=== PATIENT | male | born 1980 | race Hispanic/Latino ===

== ENCOUNTER 2019-04-04 18:07 | Emergency (ER) | payer BC, SELFPAY ==
[2019-04-04] MEDS ORDERED: IBUPROFEN 400 MG TAB ONE (18:31)
--- NOTE | 2019-04-04 18:57 | RAD REPORT ---
EXAM DESCRIPTION: RAD - Shoulder Left 2 View - 04/04/2019 6:32 pm CLINICAL HISTORY: PAIN COMPARISON: No comparisons FINDINGS: No fracture or dislocation is seen.
--- NOTE | 2019-04-04 20:21 | EDPHYS ---
Physician Documentation [facility] Name: Redd Michel Age: 38 yrs Sex: Male : 1980 Arrival Date: 04/04/2019 Time: 18:09 Bed 30 Private MD: ED Physician Erick Landeros HPI: 04/04 21:18 This 38 yrs old Male presents to ER via Ambulatory with complaints of Neck kb Pain, <24hrs Old, Back Pain, Shoulder Pain. 21:18 The patient or guardian complains of pain. left shoulder. Context: The problem was kb sustained at work, resulted from an unknown reason, The patient reports no decreased range of motion. The patient reports no obvious deformity. Onset: The symptoms/episode began/occurred 3 month(s) ago. Modifying factors: the symptoms are alleviated by nothing. The symptoms are aggravated by movement. Associated signs and symptoms: The patient has no apparent associated signs or symptoms. Severity of symptoms: At their worst the symptoms were moderate, in the emergency department the symptoms are unchanged. Treatment prior to arrival includes: no previous treatment. The patient has not experienced similar symptoms in the past. The patient has not recently seen a physician. Pt reports left shoulder pain for 3 months and throbbing headache left side of head since this morning. . Historical: - Allergies: 18:15 No Known Allergies; ss - Home Meds: 18:15 None [Active]; ss - PMHx: 18:15 None; ss - PSHx: 18:15 None; ss - Immunization history:: Adult Immunizations up to date. - Social history:: Smoking status: Patient/guardian denies using tobacco. - Ebola Screening: : Patient denies exposure to infectious person Patient denies travel to an Ebola-affected area in the 21 days before illness onset. ROS: 21:23 Constitutional: Negative for fever, chills, and weight loss, ENT: Negative for injury, kb pain, and discharge, Neck: Negative for injury, pain, and swelling, Cardiovascular: Negative for chest pain, palpitations, and edema, Respiratory: Negative for shortness of breath, cough, wheezing, and pleuritic chest pain, Abdomen/GI: Negative for abdominal pain, nausea, vomiting, diarrhea, and constipation, Back: Negative for injury and pain, Skin: Negative for injury, rash, and discoloration. 21:23 MS/extremity: Positive for pain, of the left shoulder. 21:23 Neuro: Positive for headache. Exam: 21:23 Constitutional: This is a well developed, well nourished patient who is awake, alert, kb and in no acute distress. Head/Face: Normocephalic, atraumatic. ENT: Nares patent. No nasal discharge, no septal abnormalities noted. Tympanic membranes are normal and external auditory canals are clear. Oropharynx with no redness, swelling, or masses, exudates, or evidence of obstruction, uvula midline. Mucous membranes moist. Neck: Trachea midline, no thyromegaly or masses palpated, and no cervical lymphadenopathy. Supple, full range of motion without nuchal rigidity, or vertebral point tenderness. No Meningismus. Chest/axilla: Normal chest wall appearance and motion. Nontender with no deformity. No lesions are appreciated. Cardiovascular: Regular rate and rhythm with a normal S1 and S2. No gallops, murmurs, or rubs. Normal PMI, no JVD. No pulse deficits. Respiratory: Lungs have equal breath sounds bilaterally, clear to auscultation and percussion. No rales, rhonchi or wheezes noted. No increased work of breathing, no retractions or nasal flaring. Abdomen/GI: Soft, non-tender, with normal bowel sounds. No distension or tympany. No guarding or rebound. No evidence of tenderness throughout. Skin: Warm, dry with normal turgor. Normal color with no rashes, no lesions, and no evidence of cellulitis. MS/ Extremity: Pulses equal, no cyanosis. Neurovascular intact. Full, normal range of motion. Neuro: Awake and alert, GCS 15, oriented to person, place, time, and situation. Cranial nerves II-XII grossly intact. Motor strength 5/5 in all extremities. Sensory grossly intact. Cerebellar exam normal. Normal gait. Vital Signs: 18:14 Resp 18; Temp 97.6; Weight 122.47 kg; Height 5 ft. 11 in. (180.34 cm); ss 18:24 BP 140 / 103 LA; tr5 18:14 Body Mass Index 37.66 (122.47 kg, 180.34 cm) ss MDM: 18:10 Patient medically screened. kb 19:02 Data reviewed: vital signs, nurses notes. Data interpreted: Pulse oximetry: on room air kb is 100 %. Interpretation: normal. 19:15 Counseling: I had a detailed discussion with the patient and/or guardian regarding: the kb historical points, exam findings, and any diagnostic results supporting the discharge/admit diagnosis, radiology results, the need for outpatient follow up, a family practitioner, to return to the emergency department if symptoms worsen or persist or if there are any questions or concerns that arise at home. 21:22 ED course: Headache resolved after medication. kb 04/04 18:17 Order name: Shoulder Left (2 View) XRAY; Complete Time: 19:02 kb Administered Medications: 18:35 Drug: Ibuprofen 800 mg Route: PO; tr5 Disposition: 04/05 07:17 Co-signature as Attending Physician, Erick Landeros MD. rn Disposition: 04/04/19 20:21 Discharged to Home. Impression: Headache, Pain in left shoulder. - Condition is Stable. - Discharge Instructions: Shoulder Pain, [id number], General Headache Without Cause, [id number]. - Medication Reconciliation Form, Thank You Letter, Antibiotic Education, Prescription Opioid Use form. - Follow up: Emergency Department; When: As needed; Reason: Worsening of condition. Follow up: Private Physician; When: 2 - 3 days; Reason: Recheck today's complaints, Continuance of care, Re-evaluation by your physician. Signatures: Dispatcher [employer] EDMS Kriss Vann, POULTRY SERVICE TECHNICIAN-C POULTRY SERVICE TECHNICIAN-Ckb Erick Landeros MD MD rn Smirch, Shelby, RN RN ss Rodriguez, Tommie, RN RN tr5 Corrections: (The following items were deleted from the chart) 04/04 20:52 20:21 04/04/2019 20:21 Discharged to Home. Impression: Headache; Pain in left shoulder. tr5 Condition is Stable. Forms are Medication Reconciliation Form, Thank You Letter, Antibiotic Education, Prescription Opioid Use. Follow up: Emergency Department; When: As needed; Reason: Worsening of condition. Follow up: Private Physician; When: 2 - 3 days; Reason: Recheck today's complaints, Continuance of care, Re-evaluation by your physician. kb
--- NOTE | 2019-04-04 20:21 | ER ---
Nurse's Notes [facility] Name: Redd Michel Age: 38 yrs Sex: Male : 1980 Arrival Date: 04/04/2019 Time: 18:09 Bed 30 Private MD: Diagnosis: Headache;Pain in left shoulder Presentation: 04/04 18:14 Presenting complaint: Patient states: L shoulder pain x 3 months. L occipital throbbing ss that began today. No known injury. Transition of care: patient was not received from another setting of care. Acute neurological deficit: none identified. Onset of symptoms is unknown. Risk Assessment: Do you want to hurt yourself or someone else? Patient reports no desire to harm self or others. Initial Sepsis Screen: Does the patient have a suspected source of infection? No. Patient's initial sepsis screen is negative. Care prior to arrival: None. 18:14 Method Of Arrival: Ambulatory ss 18:14 Acuity: SAURABH 4 ss 18:14 Initial Sepsis Screen: Does the patient meet any 2 criteria? No. Patient's initial tr5 sepsis screen is negative. Historical: - Allergies: 18:15 No Known Allergies; ss - Home Meds: 18:15 None [Active]; ss - PMHx: 18:15 None; ss - PSHx: 18:15 None; ss - Immunization history:: Adult Immunizations up to date. - Social history:: Smoking status: Patient/guardian denies using tobacco. - Ebola Screening: : Patient denies exposure to infectious person Patient denies travel to an Ebola-affected area in the 21 days before illness onset. Screenin:26 Abuse screen: Denies threats or abuse. Nutritional screening: No deficits noted. tr5 Tuberculosis screening: No symptoms or risk factors identified. Fall Risk None identified. Assessment: 18:26 General: Appears uncomfortable, Behavior is calm, cooperative, appropriate for age. tr5 Pain: Complains of pain in occipital area and left arm. Neuro: Level of Consciousness is awake, alert, obeys commands, Oriented to person, place, time, Tack Puller are equal bilaterally Moves all extremities. Reports headache occipital area, since this morning. Cardiovascular: Heart tones present Capillary refill < 3 seconds Pulses are all present. Edema is absent. Respiratory: Airway is patent Respiratory effort is even, unlabored, Respiratory pattern is regular, symmetrical. GI: No signs and/or symptoms were reported involving the gastrointestinal system. : No signs and/or symptoms were reported regarding the genitourinary system. EENT: No signs and/or symptoms were reported regarding the EENT system. Derm: No signs and/or symptoms reported regarding the dermatologic system. Musculoskeletal: No signs and/or symptoms reported regarding the musculoskeletal system. 20:00 Reassessment: Patient appears in no apparent distress at this time. Patient and/or tr5 family updated on plan of care and expected duration. Pain level reassessed. Patient is alert, oriented x 3, equal unlabored respirations, skin warm/dry/pink. Vital Signs: 18:14 Resp 18; Temp 97.6; Weight 122.47 kg; Height 5 ft. 11 in. (180.34 cm); ss 18:24 BP 140 / 103 LA; tr5 18:14 Body Mass Index 37.66 (122.47 kg, 180.34 cm) ED Course: 18:09 Patient arrived in ED. ag5 18:10 Kriss Vann FNP-C [facility]. kb 18:10 Erick Landeros MD is Attending Physician. kb 18:10 Villa Pryor, YAMIL is Primary Nurse. tr5 18:14 Arm band placed on right wrist. ss 18:15 Triage completed. ss 18:26 Call light in reach. Side rails up X 1. Adult w/ patient. tr5 18:31 Shoulder Left (2 View) XRAY In Process Unspecified. EDMS 20:51 No provider procedures requiring assistance completed. Patient did not have IV access tr5 during this emergency room visit. Administered Medications: 18:35 Drug: Ibuprofen 800 mg Route: PO; tr5 Outcome: 20:21 Discharge ordered by . kb 20:51 Discharged to home ambulatory. tr5 20:51 Condition: stable 20:51 Discharge instructions given to patient, Instructed on discharge instructions, follow up and referral plans. Demonstrated understanding of instructions, follow-up care. 20:52 Patient left the ED. tr5 Signatures: Dispatcher [employer] EDMS Kriss Vann FNP-C FNP-Ckb Smirch, Shelby, RN RN Margi Garcia ag5 Villa Pryor RN RN tr5
[2019-04-04 20:57] VITALS: TEMP 97.6
[2019-04-04 20:58] VITALS: BP 140/103
== END 2019-04-04 20:52 | disposition home or self-care (01) ==
LOC: ER 18:07
DX: M25.512 Pain in left shoulder (principal)
CPT/HCPCS: 99283